=== PATIENT | male | born 1940 | race Hispanic/Latino ===

== ENCOUNTER → 2017-06-05 | Outpatient (CLI) | payer OTHER | END | disposition home or self-care (01) | LOC: OIH 13:22 | PROVIDERS: ATTEND Family Medicine | DX: M17.11 Unilateral primary osteoarthritis, right knee (principal) | CPT/HCPCS: 73560 ==

== ENCOUNTER → 2022-05-15 | Outpatient (CLI) | payer OTHER | END | disposition home or self-care (01) | LOC: RAH 11:42 | PROVIDERS: ATTEND Internal Medicine | DX: Z01.818 Encounter for other preprocedural examination (principal); N40.0 Benign prostatic hyperplasia without lower urinary tract symptoms; M47.815 Spondylosis without myelopathy or radiculopathy, thoracolumbar region | CPT/HCPCS: 71046 ==

== ENCOUNTER → 2024-09-02 | Outpatient (CLI) | payer OTHER ==
--- NOTE | 2024-09-02 12:19 | HMCIMG ---
CHEST 2VWS REASON: SIMPLE CHRONIC BRONCHITIS, CHRONIC COUGH COMPARISON: Prior chest radiograph from 04/14/2023 is available. FINDINGS: Two views of the chest were obtained. Lungs are clear. There is hyperaeration of lungs with flattening of both hemidiaphragms suggesting of chronic obstructive pulmonary disease. Heart size is normal. There is no pulmonary vascular congestion. Mediastinum and bony thorax appear unremarkable. Bony thorax demonstrates osteopenia with mild early osteoarthritic changes. IMPRESSION: Chronic obstructive pulmonary disease No evidence of airspace consolidation or pulmonary venous congestion and unchanged from prior study.
== END | disposition home or self-care (01) ==
LOC: RAH 10:26
PROVIDERS: ATTEND Internal Medicine
DX: J44.89 Other specified chronic obstructive pulmonary disease (principal); J98.4 Other disorders of lung; J98.6 Disorders of diaphragm; M85.88 Other specified disorders of bone density and structure, other site; M47.814 Spondylosis without myelopathy or radiculopathy, thoracic region
CPT/HCPCS: 71046